=== PATIENT | female | born 1955 ===

== ENCOUNTER 2021-01-11 15:35 | Outpatient (CLI) | payer OTHER | END 2021-01-11 15:36 | disposition home or self-care (01) | LOC: BICMAMMO 15:35 | PROVIDERS: ATTEND Family Medicine | DX: Z12.31 Encounter for screening mammogram for malignant neoplasm of breast (principal); Z91.89 Other specified personal risk factors, not elsewhere classified; Z98.890 Other specified postprocedural states | CPT/HCPCS: 77063; 77067 ==